=== PATIENT | female | born 1980 | race Caucasian/White ===

== ENCOUNTER 2016-12-01 17:28 | Emergency (ER) | payer OTHER ==
[~2016-12-01] VITALS: Ht 165.1 cm; Wt 128.5 kg
[~2016-12-01 17:28] MED LIST: FES300 PO; GLYB5TAB3 PO; PREN1TAB73 PO
[2016-12-01 17:34] VITALS: BP 146/97; PULSE 89; RESP 16; O2SAT 99
--- NOTE | 2016-12-01 18:26 | ED.REPORT ---
HPI-Abd Pain F Under 38 Date of Service Dec 01, 2016 ED Provider: Terrence Fritz DO A 36 year old female with no pertinent medical history presents to the ED complaining of left flank pain. This has been accompanied by dysuria, hematuria , urinary urgency, and urinary frequency. The symptoms initially seemed to resolve with cranberry juice but returned several days ago. She denies nausea, vomiting, or diarrhea, as well as possibility of . Nursing Notes Stated Complaint: POSS BLADDER INFECTION Chief Complaint: Female Abdominal Pain Nursing Notes Reviewed: Yes Allergies: Coded Allergies: Penicillins (Verified Allergy, Severe, 07/04/09) erythromycin ethylsuccinate (Verified Allergy, Severe, 07/04/09) Scheduled Ferrous Sulfate-Expunged Drug, Do Not Renew! (Feosol-Expunged Drug, Do Not Renew !) 325 Mg Tablet 325 ( PO DAILY Vit/Fe Fumarate/Fa-Expunged Drug, Do (-Expunged Drug, Do Not Renew!) 1 Tab Tablet 1 TAB PO DAILY Miscellaneous Medications Glyburide-Expunged Drug, Do Not Renew! (Diabeta-Expunged Drug, Do Not Renew!) 5 Mg Tablet 5 MG PO General Time Seen by MD: 18:25 Chief Complaint Flank pain left Hx Obtained From: Patient Arrived By: Walk-in Sudden in Onset?: No Symptom Duration: Since onset Recent Healthcare: No recent doctor visit, No recent hospitalization Similar Sx Previous: No Past Medical History Past Medical History none reported Past Surgical History none reported Smoking History Unknown if Ever Smoker Social History Other Social History: Good social support Ambulatory Status Independent Review of Systems Constitutional: Denies: Fever Respiratory: Denies: Non-productive cough, Shortness of breath Cardiovascular: Denies: Chest pain GI: Denies: Abdominal pain, Vomiting Female: Reports: Dysuria, Flank pain, Hematuria, Urinary frequency, Urinary urgency Musculoskeletal: Denies: Neck pain Complete sys rev & neg: except as marked. Physical Exam Initial Vital Signs Vital Signs (First) Date Time Temp Pulse Resp B/P Pulse Ox O2 Delivery O2 Flow Rate FiO2 12/01/16 17:34 36.3 89 16 146/97 99 Room Air Initial VS: Reviewed General/Constitutional: Awake, Alert Respiratory / Chest: Atraumatic, Breath sounds NL, Breath sounds = bilat, No respiratory distress Cardiovascular: Heart rate NL, Regular rhythm, Heart sounds NL Abdomen: Atraumatic, Soft, Non-tender Back: Atraumatic, Full range of motion left sided CVAT Head / Eyes: Atraumatic, Normocephalic, PERRL, EOMI ENT: Atraumatic, Airway patent, Mucous membranes moist Skin: Atraumatic, Color NL, No rash, Warm, Dry Neurologic: Oriented X3, Speech NL, No motor deficits, No sensory deficits Neck: Atraumatic, Supple, Full range of motion Upper Extremity / MS: Atraumatic, Full range of motion Lower Extremity / Pelvis / MS: Atraumatic, Full range of motion Psychiatric: Affect NL, Mood NL Interpretation & Diagnostics Interpretation & Diagnostics: CT KUB: IMPRESSION: 1. No evidence of urinary tract calcification, nor obstruction. 2. Normal appendix. 3. Small hiatal hernia. Dictated by: Korey Gomes M.D. on 12/01/2016 at 19:50 Approved by: Korey Gomes M.D. on 12/01/2016 at 19:51 Lab Results Interpretation Test 12/01/16 15:45 Urine Color Bloody (YELLOW) Urine Appearance Clear (CLEAR,HAZY) Urine pH 6.0 (5.0-8.0) Urine Specific [place] <1.005 (1.003-1.035) Urine Protein Negativemg/dL (NEG,TRACE) Urine Glucose (UA) Negativemg/dL (NEGATIVE) Urine Ketones Negativemg/dL (NEGATIVE) Urine Occult Blood Large (NEGATIVE) Urine Nitrite Negative (NEGATIVE) Urine Bilirubin Negative (NEGATIVE) Urine Urobilinogen Normalmg/dL (NORMAL) Urine Leukocyte Esterase Negative (NEGATIVE) Urine RBC 3-10/hpf (0-2) Urine WBC 0-5/hpf (0-5) Urine Epithelial Cells Few/hpf (NONE-MOD) Urine Crystals None seen (NONE SEEN) Urine Bacteria Few/hpf (NONE-FEW) Urine Hyaline Casts None/lpf (NONE) Urine Granular Casts None seen (NONE SEEN) Urine Waxy Casts None seen (NONE SEEN) Urine Red Blood Cell Casts None seen (NONE SEEN) Urine White Blood Cell Casts None seen (NONE SEEN) Urine Mucus None seen (None Seen) Urine Trichomonas None seen (NONE SEEN) Urine Yeast None (NONE SEEN) Urinalysis Comment None Urine Culture Reflexed Not indicated Hold Urine Received (Received) Pulse Oximetry Interpretation Pulse Oximetry Interpretation: 99% on room air Pulse Oximetry: Pulse Ox normal Re-Eval/Medical Decision Med Decision/Clinical Course Left flank pain and hematuria. CT scan reassuring. We will culture her urine. Place her on Bactrim. Gen-Probe is been sent out. Short course of [place] provided for pain. Routine opiate warnings. Follow up next week. Return if any problems. Source of Hx: Old records Re-Evaluation/Progress : Time of Eval: 20:01 Patient Status: Condition improved Re-Evaluation/Progress Note: Pt rechecked, who is comfortable. She is informed of her radiology results, diagnosis, and the plan for discharge. The pt understands and agrees with the plan. All questions are addressed at this time. Counseled Regarding: Diagnosis, Lab results, Need for follow-up, When/why to return to ED Discharge & Departure Primary Impression: Hematuria Additional Impressions: Dysuria Flank pain Disposition: Home Discharge Condition All VS Reviewed: Yes Condition: Stable Patient Instructions: Acute Hematuria (ED) Additional Instructions: Take Bactrim twice daily for 7 days. Take 1-2 [place] every 6 hours as needed for severe pain. Do not drive, drink alcohol, or consume acetaminophen while taking the [place]. Call your primary care physician tomorrow to arrange a follow up appointment this week. Return to the emergency room if you develop any new or worsening symptoms. Referrals: [facility] [place] Attestation Portions of this note were transcribed by Fabrizio Martin. I, Dr. Fritz personally performed the history, physical exam and medical decision-making; I reviewed and confirmed the accuracy of the information in the transcribed note. Signed by: Veronica Hankins, 12/01/2016 and 2023. copies to: [facility] Terrence Fritz DO Dec 01, 2016 18:26 FABRIZIO MARTIN Dec 01, 2016 18:35
[2016-12-01 19:19] LABS: APPEARANCE,URINE CLEAR (CLEAR,HAZY); COLOR,URINE BLOODY (YELLOW); OCCULT BLOOD,URINE LARGE (NEGATIVE); UROBILINOGEN,URINE NORMAL (NORMAL)
[2016-12-01] MEDS ORDERED: HYDROcodone-APAP 5-325 mg Tablet PO ONE (19:30)
[2016-12-01] MEDS ORDERED: Trimethoprim-Sulfa 160 mg-800 mg Tablet PO ONE (19:30)
--- NOTE | 2016-12-01 19:53 | DRSVH ---
PROCEDURE: CT KUB ([id number]) INDICATIONS: left flank pain, hematuria TECHNIQUE: Noncontrast 5 mm thick sections acquired from the diaphragms to the symphysis. 5 mm thick coronal an d sagittal reformats were then performed. For radiation dose reduction, the following was used: aut omated exposure control, adjustment of mA and/or kV according to patient size. COMPARISON: None. FINDINGS: Image quality: Excellent. Lung bases: Lung bases are clear. Heart size is normal. Urinary system: Both kidneys are normal in size. No kidney stones. No hydronephrosis or perinephri c fat stranding. Both ureters appear non-dilated throughout their expected courses. Bladder wall th ickness is normal; no calcified bladder stones. Other solid organs: Liver and spleen are normal in size. Gallbladder is contracted. Pancreas is no rmal in contours. No adrenal nodules. Peritoneum and bowel: A small hiatal hernia is present. Unenhanced bowel loops demonstrate normal wal l thickness and caliber. Diverticulosis of the descending and sigmoid colon, with no evidence of acu te diverticulitis. Normal appendix. No free fluid or air. Nodes and vessels: No retroperitoneal or mesenteric adenopathy by size criteria. Aorta and inferior vena cava are normal in caliber. Abdominal wall: No ventral hernias. Pelvis: No free pelvic fluid. No inguinal hernias or adenopathy. Bones: No suspicious bony lesions. No vertebral body compression fractures. IMPRESSION: 1. No evidence of urinary tract calcification, nor obstruction. 2. Normal appendix. 3. Small hiatal hernia. Dictated by: Korey Gomes M.D. on 12/01/2016 at 19:50 Approved by: Korey Gomes M.D. on 12/01/2016 at 19:51
[2016-12-01 20:07] VITALS: BP 146/62; PULSE 96; O2SAT 96
[2016-12-01 20:14] VITALS: BP 146/62; PULSE 96; RESP 16; O2SAT 96
== END 2016-12-01 20:15 | disposition home or self-care (01) ==
LOC: SED 17:28
DX: R31.9 Hematuria, unspecified (principal); R30.0 Dysuria; R10.9 Unspecified abdominal pain; Z88.0 Allergy status to penicillin; Z88.1 Allergy status to other antibiotic agents